=== PATIENT | female | born 1985 | race African-American/Black ===

== ENCOUNTER 2016-09-14 21:45 | Emergency (ER) | payer OTHER, MEDICAID ==
[~2016-09-14] VITALS: Ht 172.7 cm; Wt 45.4 kg
[2016-09-14 21:45] VITALS: BP 109/70
--- NOTE | 2016-09-14 21:50 | Emergency Room Report ---
History of Present Illness General Chief Complaint: Allergic Reaction Source: Patient, EMS Present Illness HPI Patient is a 31-year-old female presented after having increased difficulty breathing after eating at a restaurant. Patient reportedly had ingested some food which contained nuts. Patient prior history of peanut Allergy. She had taken oral Benadryl as well as EpiPen prior to arrival. Allergies: Coded Allergies: PEANUT (Verified Allergy, Unknown, 09/14/16) Patient History Last Menstrual Period: ukn Now: No - ukn Reviewed Nursing Documentation: PMH: Agreed, PSxH: Agreed Nursing Documentation-PMH Past Medical History: No History, Except For Review of Systems All Other Systems: negative except mentioned in HPI Physical Exam Vital Signs Date Time Temp Pulse Resp B/P Pulse Ox O2 Delivery O2 Flow Rate FiO2 09/14/16 21:41 98.1 74 16 109/70 98 Room Air Sp02 EP Interpretation: reviewed, normal General Appearance: normal inspection, well appearing, no apparent distress, alert, GCS 15 Head: atraumatic ENT: normal ENT inspection, hearing grossly normal, normal voice Neck: normal inspection, full range of motion, supple, no bony tend Respiratory: normal inspection, lungs clear, normal breath sounds, no respiratory distress, no retraction, no wheezing Cardiovascular #1: regular rate, rhythm, no edema Gastrointestinal: normal inspection, normal bowel sounds, non tender, soft, no guarding, no hernia Genitourinary: no CVA tenderness Musculoskeletal: normal inspection, back normal, normal range of motion Neurologic: normal inspection, alert, oriented x3, responsive, 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 Differential diagnoses included wasn' t limited to anaphylaxis, angioedema, foreign body among others. Patient's benign exam and does not appear to require any further imaging or laboratory testing at this time. The patient given IV steroids as well as IV Benadryl. The patient gradual improvement in symptoms. Patient was observed in the emergency department and was noted to have improvement. She stated she wanted to go home. Patient given prescription for EpiPen as well as steroids and Benadryl. Last Vital Signs Date Time Temp Pulse Resp B/P Pulse Ox O2 Delivery O2 Flow Rate FiO2 09/14/16 21:41 98.1 74 16 109/70 98 Room Air Status: improved Disposition: HOME, SELF-CARE Condition: Stable Scripts Prednisone* (PREDNISONE*) 20 Mg Tablet 60 MG ORAL DAILY, #15 TAB Prov: Domo Kemp 09/15/16 Diphenhydramine Hcl* (BENADRYL*) 25 Mg Capsule 25 MG ORAL Q6H Y for Itching, #30 CAP Prov: Domo Kemp 09/15/16 Epinephrine (Epipen 2-Usama) 0.3 Mg/0.3 Ml Auto.injct 0.3 MG IM ONCE, #1 EA Prov: Domo Kemp 09/15/16 Domo Kmep Sep 14, 2016 21:49
[2016-09-14] MEDS ORDERED: DiphenhydrAMINE 50mg/ml Inj IVP ONE (22:00)
[2016-09-14] MEDS ORDERED: Solu-MEDROL 125mg Inj IVP ONE (22:00)
[2016-09-15] MEDS ORDERED: EPIPEN 2-P0.3 MG/0.3 IM (00:05)
[2016-09-15] MEDS ORDERED: PREDNISONE20 MG ORAL (00:05)
[2016-09-15] MEDS ORDERED: BENADRYL25 MG ORAL (00:05)
[2016-09-15 01:48] VITALS: BP 109/70
== END 2016-09-15 00:10 | disposition home or self-care (01) ==
LOC: EDBD 21:45 → EMR 23:40
DX: T78.40XA Allergy, unspecified, initial encounter (principal); X58.XXXA Exposure to other specified factors, initial encounter; Z91.010 Allergy to peanuts
CPT/HCPCS: 81025; 96374; 96375; 99284; J1200; J2930